=== PATIENT | female | born 1985 | race Caucasian/White ===

== ENCOUNTER 2024-01-21 11:46 | Emergency (ER) | payer OTHER, SELFPAY ==
[2024-01-21 11:48] VITALS: BP 139/89; PULSE 93; RESP 20; TEMP 36.1; O2SAT 100
[2024-01-21 13:15] LABS: Appearance Urine Clear (Clear); Bilirubin Urine Negative (Negative); Blood Urine Negative (Negative); Color Urine Yellow (Yellow); Glucose Urine UA Negative (Negative); Ketones Urine Negative (Negative); Leukocyte Esterase Ur Negative LEU/UL (Negative); Nitrate Urine Negative (Negative); Protein Urine Negative (Negative); Specific Grav Ur 1.005 (1.001-1.035); Urobilinogen Urine 0.2 mg/dL (<2.0)
[2024-01-21 13:16] LABS: Add Urine Microscopic? NO
[2024-01-21 13:31] VITALS: BP 120/80; PULSE 74; RESP 16; O2SAT 100
[2024-01-21 13:46] LABS: Basophils Absolute Auto 0.1 K/mm3 (0.0-0.1); Basophils Percent Auto 0.6 % (0.2-1.2); Eosinophils Percent Auto 0.2 % (0-4.4); Hematocrit 35.6 % (37.0-47.0); Hemoglobin 12.5 g/dL (12.0-15.0); Immature Granulocyte Absolute 0.03 K/mm3 (0.00-0.031); Immature Granulocyte Percent A 0.2 % (0-0.5); Lymphocytes Absolute Auto 1.55 K/mm3 (0.9-3.2); Lymphocytes Percent Auto 10.8 % (18.3-44.2); Mean Corpuscular HGB Conc 35.1 g/dl (32-36); Mean Corpuscular Hemoglobin 33.7 pg (26-34); Mean Platelet Volume 8.6 fl (7.4-10.4); Monocytes Absolute Auto 0.8 K/mm3 (0.1-0.6); Monocytes Percent Auto 5.4 % (2.6-8.5); Neutrophils Absolute Auto 11.9 K/mm3 (1.3-6.7); Neutrophils Percent Auto 82.8 % (45.5-73.1); Platelet Count Result 233 k/mm3 (150-375); Red Blood Count 3.71 M/mm3 (4.2-5.4); Red Cell Distribution Width 12.7 % (11.5-14.5); White Blood Count 14.4 K/mm3 (4.5-10.0)
[2024-01-21 13:57] LABS: Alanine Aminotransferase 25 U/L (6-35); Albumin Level 4.6 g/dL (3.5-5.1); Alkaline Phosphatase 69 U/L (38-126); Anion Gap 11 mmol/L (4-12); Aspartate Amino Transferase 37 U/L (14-36); Bilirubin,Total 0.6 mg/dL (0.2-1.3); Blood Urea Nitrogen 6 mg/dL (7-17); Calcium 9.3 mg/dL (8.4-10.2); Carbon Dioxide 22 mmol/L (22-30); Chloride 93 mmol/L (98-107); Estimated CRCL calculation 105 ml/min; Estimated Glomerular Filt Rate > 60; Glucose 82 mg/dL (65-110); Potassium 3.7 mmol/L (3.4-5.0); Sodium 126 mmol/L (137-145)
[2024-01-21 14:31] VITALS: BP 118/72; O2SAT 99
--- NOTE | 2024-01-21 14:57 | ED.GENADULT ---
HPI - General Adult General Chief complaint: Urogenital-Female Stated complaint: cant urinate Time Seen by Provider: 01/21/24 12:45 History of Present Illness HPI narrative: Patient is a 38-year-old female who presents to the ER with inability to urinate. Reports that she last urinated last night. She is having suprapubic pain. She did receive a Emmanuel catheter on arrival here had 1200 mL of urine output. No fevers or chills or sweats. Has not had this issue before. Reports she takes Claritin at home. Has not taken any other medications. No numbness or tingling to the arms or legs. No recent trauma. Related Data Allergies Allergy/AdvReac Type Severity Reaction Status Date / Time No Known Allergies Allergy Unverified 07/23/13 11:05 Review of Systems Constitutional: Constitutional: Reports no additional constitutional complaints ENT: Reports system reviewed and no additional complaints, except as documented Gastrointestinal: Gastrointestinal: Reports abdominal pain, Denies diarrhea, Denies nausea and Denies vomiting Genitourinary: Genitourinary: Denies hematuria, Denies nocturia, Denies dysuria, Denies flank pain and Denies urinary incontinence Comments: Urinary retention PMFSH Past Medical History Medical History (Updated 01/21/24 @ 15:00 by Adam Yeh MD) Uterine fibroid Surgical History Surgical History (Updated 01/21/24 @ 14:59 by Adam Yeh MD) No history of previous surgery Exam Narrative: GENERAL: Well-appearing, well-nourished, and in no acute distress. HEAD: Normocephalic, atraumatic. ENT: Mucous membranes moist. CHEST: Clear to auscultation. No respiratory distress. HEART: Regular rate and rhythm. Normal peripheral pulses. ABDOMEN: Soft, nontender, nondistended. EXTREMITIES: Normal range of motion. No edema. SKIN: Warm, dry, no rash. NEURO: Alert and oriented x3. PSYCH: Normal mood and affect. Course Course Emergency Course: patient informed of results. Sodium low but patient appropriate for discharge with follow-up with Urology. 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 Vital Signs Vital signs: Vital Signs Temperature 97.0 F L 01/21/24 11:48 Pulse Rate 93 01/21/24 11:48 Respiratory Rate 20 01/21/24 11:48 Blood Pressure 139/89 01/21/24 11:48 Pulse Oximetry 100 01/21/24 11:48 Oxygen Delivery Room Air 01/21/24 11:48 Temperature 97.0 F L 01/21/24 11:48 Pulse Rate 74 01/21/24 13:31 Respiratory Rate 16 01/21/24 13:31 Blood Pressure 120/80 01/21/24 13:31 Pulse Oximetry 100 01/21/24 13:31 Oxygen Delivery Room Air 01/21/24 11:48 Medical Decision Making Vital Signs Vital Signs: Vital Signs Temperature 97.0 F L 01/21/24 11:48 Pulse Rate 93 01/21/24 11:48 Respiratory Rate 20 01/21/24 11:48 Blood Pressure 139/89 01/21/24 11:48 Pulse Oximetry 100 01/21/24 11:48 Oxygen Delivery Room Air 01/21/24 11:48 Temperature 97.0 F L 01/21/24 11:48 Pulse Rate 74 01/21/24 13:31 Respiratory Rate 16 01/21/24 13:31 Blood Pressure 120/80 01/21/24 13:31 Pulse Oximetry 100 01/21/24 13:31 Oxygen Delivery Room Air 01/21/24 11:48 Lab Data 01/21/24 13:39 01/21/24 13:39 Labs: Lab Results 01/21/24 01/21/24 Range/Units 13:09 13:39 WBC 14.4 H (4.5-10.0) K/mm3 RBC 3.71 L (4.2-5.4) M/mm3 Hgb 12.5 (12.0-15.0) g/dL Hct 35.6 L (37.0-47.0) % MCV 96.0 (80-100) fl MCH 33.7 (26-34) pg MCHC 35.1 (32-36) g/dl RDW 12.7 (11.5-14.5) % Plt Count 233 (150-375) k/mm3 MPV 8.6 (7.4-10.4) fl Immature Gran % (Auto) 0.2 (0-0.5) % Neut % (Auto) 82.8 H (45.5-73.1) % Lymph % (Auto) 10.8 L (18.3-44.2) % [place] % (Auto) 5.4 (2.6-8.5) % Eos % (Auto) 0.2 (0-4.4) % Baso % (Auto) 0.6 (0.2-1.2) % Lymph # (Auto) 1.55 (0.
[2024-01-21 15:01] VITALS: BP 123/76; O2SAT 99
== END 2024-01-21 15:30 | disposition home or self-care (01) ==
PROVIDERS: Emergency Provider Emergency Medicine
DX: R33.9 Retention of urine, unspecified (principal)
CPT/HCPCS: 36415; 80053; 81003; 81025; 85025; 99283